=== PATIENT | female | born 1955 ===

== ENCOUNTER 2018-12-27 09:06 | Outpatient (CLI) | payer OTHER ==
[~2018-12-27 09:06] MED LIST: KLONOPIN0.5 MG/TAB PO; TYLENOL EXTRA500 MG PO; VIT B12
== END 2018-12-27 09:07 | disposition home or self-care (01) ==
LOC: NUCLEAR 09:06
DX: I87.2 Venous insufficiency (chronic) (peripheral) (principal)

== ENCOUNTER 2019-06-17 09:30 | Outpatient (CLI) | payer OTHER | END 2019-06-17 09:51 | disposition home or self-care (01) | LOC: NUCLEAR 09:30 | DX: I11.9 Hypertensive heart disease without heart failure (principal) ==

== ENCOUNTER 2019-07-04 14:06 | Outpatient (CLI) | payer OTHER | END 2019-07-04 14:07 | disposition home or self-care (01) | LOC: RAD 14:06 | DX: R07.89 Other chest pain (principal) ==